=== PATIENT | female | born 1945 | race Hispanic/Latino ===

== ENCOUNTER 2022-12-15 12:12 | Outpatient (CLI) | payer MEDICARE, OTHER | END 2022-12-15 12:13 | disposition home or self-care (01) | LOC: CSHMRI 12:12 | PROVIDERS: ATTEND Internal Medicine | DX: R51.9 Headache, unspecified (principal) | CPT/HCPCS: 70551 ==

== ENCOUNTER 2023-05-19 10:46 | Outpatient (CLI) | payer MEDICARE, OTHER | END 2023-05-19 10:47 | disposition home or self-care (01) | LOC: CSHRAD 10:46 | PROVIDERS: ATTEND Internal Medicine | DX: R05.9 Cough, unspecified (principal) | CPT/HCPCS: 71046 ==